=== PATIENT | female | born 1930 | race Caucasian/White ===

== ENCOUNTER 2018-04-01 09:23 | Outpatient (CLI) | payer MEDICARE, BC ==
[2018-04-01 09:23] VITALS: BP 145/63
[~2018-04-01 09:23] MED LIST: ASPI-1071 PO; CLOP75TA15 PO; COL100C PO; HYDR-569 PO; LOSA25TA96 PO; METO25TA6 PO; PRAV20TA4 PO
== END 2018-04-01 10:28 | disposition home or self-care (01) ==
LOC: ORTHO 09:23
PROVIDERS: ATTEND Nurse Practitioner Family
DX: S72.001A Fracture of unspecified part of neck of right femur, initial encounter for closed fracture (principal); I25.10 Atherosclerotic heart disease of native coronary artery without angina pectoris; M85.80 Other specified disorders of bone density and structure, unspecified site; Z98.890 Other specified postprocedural states; X58.XXXA Exposure to other specified factors, initial encounter; Y93.89 Activity, other specified; Y92.89 Other specified places as the place of occurrence of the external cause; Y99.8 Other external cause status
CPT/HCPCS: 99214; A6449

== ENCOUNTER 2018-05-29 11:34 | Outpatient (CLI) | payer MEDICARE, BC ==
[2018-05-29 11:42] VITALS: BP 138/70
== END 2018-05-29 12:45 | disposition home or self-care (01) ==
LOC: ORTHO 11:34
PROVIDERS: ATTEND Nurse Practitioner Family
DX: S72.001D Fracture of unspecified part of neck of right femur, subsequent encounter for closed fracture with routine healing (principal); M85.80 Other specified disorders of bone density and structure, unspecified site; I87.8 Other specified disorders of veins; I25.10 Atherosclerotic heart disease of native coronary artery without angina pectoris; M81.0 Age-related osteoporosis without current pathological fracture; Z86.2 Personal history of diseases of the blood and blood-forming organs and certain disorders involving the immune mechanism; Z88.5 Allergy status to narcotic agent; X58.XXXD Exposure to other specified factors, subsequent encounter
CPT/HCPCS: 73502; 99213

== ENCOUNTER 2018-08-27 15:26 | Outpatient (CLI) | payer MEDICARE, BC ==
[2018-08-27 15:18] VITALS: BP 143/89
[~2018-08-27 15:26] MED LIST changes: +HYDR-4383 PO; -HYDR-569 PO
== END 2018-08-27 15:52 | disposition home or self-care (01) ==
LOC: ORTHO 15:26
PROVIDERS: ATTEND Nurse Practitioner Family
DX: S72.001D Fracture of unspecified part of neck of right femur, subsequent encounter for closed fracture with routine healing (principal); M85.88 Other specified disorders of bone density and structure, other site; I25.10 Atherosclerotic heart disease of native coronary artery without angina pectoris; I10 Essential (primary) hypertension; Z86.2 Personal history of diseases of the blood and blood-forming organs and certain disorders involving the immune mechanism; Z79.82 Long term (current) use of aspirin; Z88.5 Allergy status to narcotic agent; Z90.710 Acquired absence of both cervix and uterus; X58.XXXD Exposure to other specified factors, subsequent encounter
CPT/HCPCS: 73502; 99213

== ENCOUNTER 2019-02-25 09:45 | Outpatient (CLI) | payer MEDICARE, BC | END 2019-02-25 10:39 | disposition home or self-care (01) | LOC: ORTHO 09:45 | PROVIDERS: ATTEND Orthopaedic Surgery | DX: S72.141D Displaced intertrochanteric fracture of right femur, subsequent encounter for closed fracture with routine healing (principal); M16.11 Unilateral primary osteoarthritis, right hip; I10 Essential (primary) hypertension; Z98.890 Other specified postprocedural states; X58.XXXD Exposure to other specified factors, subsequent encounter | CPT/HCPCS: 73502; 99213 ==